=== PATIENT | female | born 1975 | race Caucasian/White ===

== ENCOUNTER 2016-10-11 20:23 | Emergency (ER) | payer OTHER ==
[~2016-10-11] VITALS: Ht 160 cm; Wt 63.0 kg
[2016-10-11 20:26] VITALS: TEMP 37; Ht 160 cm; Wt 63.0 kg
[2016-10-11] MEDS ORDERED: HYDROCODONE/ACETAMOPHEN 5/325MG TAB PO STA ×2 (20:48→22:22)
[2016-10-11] MEDS ORDERED: ALPR-411 PO (21:01)
[2016-10-11] MEDS ORDERED: RTL20 PO (21:01)
[2016-10-11] MEDS ORDERED: VENL150C56 PO (21:01)
[2016-10-11] MEDS ORDERED: DLN/100 PO (21:01)
--- NOTE | 2016-10-11 21:13 | DIAGNOSTIC IMAGING REPORT ---
CT HEAD WITHOUT CONTRAST (CT) CLINICAL HISTORY: Headache and visual changes status post head trauma COMPARISON STUDY: No previous studies for comparison. TECHNIQUE: Axial CT of the brain is performed from the vertex to the skull base. IV contrast was not administered for this examination. CT DOSE: 537.48 mGy.cm FINDINGS: No intra or extra-axial mass lesions are visualized. There is no CT evidence of acute cortical infarction. There is no evidence of midline shift. There is no acute hemorrhage. No calvarial fractures are visualized. There is no evidence of pathologic ventricular dilatation. There is no evidence of acute sinusitis IMPRESSION: No acute intracranial findings Electronically signed by: Robert Elliott M.D. 10/11/2016 9:12 PM Dictated Date/Time: 10/11/2016 9:11 PM
--- NOTE | 2016-10-11 21:40 | DIAGNOSTIC IMAGING REPORT ---
RIGHT RIBS UNILATERAL WITH PA CHEST CLINICAL HISTORY: Right rib pain status post trauma COMPARISON STUDY: No previous studies for comparison. FINDINGS: The erect chest reveals no pneumothorax. There is no focal pulmonary consolidation. There is a nondisplaced fracture of the right posteriolateral ninth rib. IMPRESSION: Acute nondisplaced fracture the right posterolateral ninth rib. No evidence of pneumothorax. Electronically signed by: Robert Elliott M.D. 10/11/2016 9:38 PM Dictated Date/Time: 10/11/2016 9:36 PM
[2016-10-11] MEDS ORDERED: HYDR-5688 PO (22:14)
--- NOTE | 2016-10-11 22:16 | EMERGENCY ROOM VISIT NOTE ---
History First contact with patient: 20:31 Chief Complaint: RIB PAIN Stated Complaint: PAIN IN RIBS, HURT TO BREATH, COUGH, SNEEZE History of Present Illness The patient is a 41 year old female who presents to the Emergency Room with complaints of right rib and head injury. The patient states 2 days ago she thinks she had a seizure and then fell down the steps. She hit her right lower ribs and her head. She doesn't remember much after the fall since it was a seizure. She states that she had some visual changes after words which were typical for her post ictal phase. The patient is still complaining of pain in the right temporal region. She denies any loss of consciousness. The patient denies any abnormal visual changes. She denies any nausea or vomiting. The patient denies any neck pain. She also states that the patient lives increases in pain when she takes a deep breath coughs or sneezes. She denies any shortness of breath. Review of Systems 10 system review was performed and was negative unless stated otherwise history of present illness. Past Medical/Surgical History Asthma, seizure disorder, hysterectomy, kidney stones, Social History Smoking Status: Current Every Day Smoker Alcohol Use: none Drug Use: none Marital Status: single Housing Status: lives with significant other Occupation Status: unemployed Current/Historical Medications Scheduled Alprazolam (Xanax), 0.5 MG PO QID Methylphenidate (Ritalin), 20 MG PO TID Phenytoin Sodium (Dilantin), 200 MG PO BID Venlafaxine Hcl (Effexor Extended Rel), 150 MG PO DAILY Physical Exam Vital Signs Date Time Temp Pulse Resp B/P Pulse Ox O2 Delivery O2 Flow Rate FiO2 10/11/16 20:26 37.0 92 16 116/65 98 Room Air Physical Exam GENERAL: 41-year-old white female appears in no acute distress. MENTAL Status: Alert and oriented 3. HEAD: Atraumatic, the patient is tender to palpation over the right temporal region without any palpable lumps. EYES: PERRLA. EOMs intact. EARS: Canals clear. TMs without hemotympanum NECK: Supple, no lymphadenopathy noted. No carotid bruits noted. LUNGS: Clear auscultation without wheezes rales or rhonchi. CARDIAC: Regular rate and rhythm without murmur. Pulses is full and equal throughout. CHEST WALL: Patient is tenderness to palpation over the right lateral lower chest wall. Remainder of chest wall is nontender. NEURO:Cranial nerves two through 12 intact. Cerebellar function intact with [id number]. Fine motor intact with alternating finger motions. Medical Decision & Procedures ER Provider Diagnostic Interpretation: RIGHT RIBS UNILATERAL WITH PA CHEST CLINICAL HISTORY: Right rib pain status post trauma COMPARISON STUDY: No previous studies for comparison. FINDINGS: The erect chest reveals no pneumothorax. There is no focal pulmonary consolidation. There is a nondisplaced fracture of the right posteriolateral ninth rib. IMPRESSION: Acute nondisplaced fracture the right posterolateral ninth rib. No evidence of pneumothorax. CT HEAD WITHOUT CONTRAST (CT) CLINICAL HISTORY: Headache and visual changes status post head trauma COMPARISON STUDY: No previous studies for comparison. TECHNIQUE: Axial CT of the brain is performed from the vertex to the skull base. IV contrast was not administered for this examination. CT DOSE: 537.48 mGy.cm FINDINGS: No intra or extra-axial mass lesions are visualized. There is no CT evidence of acute cortical infarction. There is no evidence of midline shift. There is no acute hemorrhage. No calvarial fractures are visualized. There is no evidence of pathologic ventricular dilatation. There is no evidence of acute sinusitis IMPRESSION: No acute intracranial findings Electronically signed by: Robert Elliott M.D. 10/11/2016 9:12 PM Dictated Date/Time: 10/11/2016 9:11 PM Electronically signed by: Robert Elliott M.D. 10/11/2016 9:38 PM ED Course The patient was evaluated. The patient was given Jasper 5/325 mg one tablet by mouth for pain. X-ray of the right ribs was ordered and interpreted by the radiologist and myself as above with findings of a ninth rib fracture. CT of the head was ordered and interpreted by the radiologist as above without any acute findings. The patient was reevaluated was feeling better. She was informed of the x-ray and CT findings. The patient was discharged home in stable condition. Medical Decision Differential includes: Acute intracranial bleed, trauma, meningitis, encephalitis, increased intracranial pressure, mass or mass effect, facial or dental infection, temporal arteritis, CVA, TIA, acute hypertensive emergency, sinusitis, carbon monoxide exposure. Route differential include contusion versus fracture, pneumothorax Impression Primary Impression: Right rib fracture Additional Impression: Head contusion Departure Information Dispostion Home / Self-Care Condition GOOD Prescriptions Hydrocodone/Acetaminophen 5MG/325MG (Jasper 5MG/325MG) Tab 1-2 TABLET PO Q6 Y for Pain, #20 TAB For Initial Treatment Prov: Brooke Alves PA-C 10/11/16 Referrals No Doctor, Assigned (PCP) Forms HOME CARE DOCUMENTATION FORM, IMPORTANT VISIT INFORMATION, WORK / SCHOOL INSTRUCTIONS Patient Instructions ED Head Injury Closed, [facility] Additional Instructions Take Tylenol every 6 hours as needed for pain. Take Jasper as needed for more severe pain. Do not take Tylenol while taking the Jasper. Avoid any heavy lifting for 4 weeks. Read head injury handout instructions. Any problems return to ER. Follow-up with your family doctor next week for recheck. Problem Qualifiers Primary Impression: Right rib fracture Encounter type: initial encounter Rib fracture type: single rib Fracture type: closed Qualified Codes: S22.31XA - Fracture of one rib, right side, initial encounter for closed fracture Additional Impression: Head contusion Encounter type: initial encounter Contusion of head detail: scalp Qualified Codes: S00.03XA - Contusion of scalp, initial encounter
[2016-10-11 22:28] VITALS: BP 113/82; PULSE 87; O2SAT 96
== END 2016-10-11 22:31 | disposition home or self-care (01) ==
LOC: C.EDB 20:24 → C.EDD 22:31
DX: S22.31XA Fracture of one rib, right side, initial encounter for closed fracture (principal); S00.03XA Contusion of scalp, initial encounter; J45.909 Unspecified asthma, uncomplicated; G40.909 Epilepsy, unspecified, not intractable, without status epilepticus; F17.200 Nicotine dependence, unspecified, uncomplicated; W10.9XXA Fall (on) (from) unspecified stairs and steps, initial encounter; Y93.89 Activity, other specified; Y92.89 Other specified places as the place of occurrence of the external cause; Y99.8 Other external cause status

== ENCOUNTER 2018-10-23 11:45 | Inpatient (IN) ==
[2018-10-23 12:55] LABS: Basophils # (auto) 0.02 K/uL (0-0.2); Basophils % (auto) 0.3 %; Eosinophils # (auto) 0.08 K/uL (0-0.5); Eosinophils % (auto) 1.4 %; Hemoglobin 13.9 g/dL (12.0-16.0); Immature Granulocytes # (auto) 0.01 K/uL (0.00-0.02); Immature Granulocytes % (auto) 0.2 %; Lymphocytes # (auto) 1.78 K/uL (1.2-3.4); Lymphocytes % (auto) 30.1 %; Mean Corpuscular Hgb Conc 33.9 g/dL (32-36); Mean Corpuscular Volume 92.6 fL (80-100); Mean Platelet Volume 9.7 fL (7.4-10.4); Monocytes # (auto) 0.54 K/uL (0.11-0.59); Monocytes % (auto) 9.1 %; Neutrophils # (auto) 3.48 K/uL (1.4-6.5); Neutrophils % (auto) 58.9 %; Platelet Count 300 K/uL (130-400); RDW Coefficient of Variation 13.7 % (11.5-14.5); RDW Standard Deviation 46.4 fL (36.4-46.3); Red Blood Count 4.43 M/uL (4.2-5.4); White Blood Count 5.91 K/uL (4.8-10.8)
--- NOTE | 2018-10-23 13:16 | CT Scan Report ---
CT head/brain wo con CLINICAL HISTORY: 43 years-old Female with cunningham, blurry vision. Acute headache with blurry vision TECHNIQUE: Multiple axial CT images of the head were obtained without contrast. A dose lowering tech nique was utilized adhering to the principles of ALARA. CT DOSE: 638.56 mGycm COMPARISON: CT head 10/11/2016. FINDINGS: No acute intracranial hemorrhage, midline shift, intracranial mass, hydrocephalus, territorial ischem ia or abnormal extra-axial collection. The calvarium is intact. Minimal mucosal thickening about the bilateral maxillary sinuses. Mastoid a ir cells and middle ear cavities are generally clear. The soft tissues and orbits appear unremarkable . IMPRESSION: No acute intracranial abnormality. The above report was generated using voice recognition software. It may contain grammatical, syntax o r spelling errors. Electronically signed by: Bud Bowman M.D. 10/23/2018 1:15 PM
[2018-10-23 13:18] LABS: Alanine Aminotransferase 50 U/L (12-78); Albumin Level 4.2 gm/dl (3.4-5.0); Aspartate Aminotransferase 21 U/L (15-37); BUN Creatinine Ratio 13.8 (10-20); Blood Urea Nitrogen 8 mg/dl (7-18); Calcium 8.8 mg/dl (8.5-10.1); Carbon Dioxide 27 mmol/L (21-32); Chloride 106 mmol/L (98-107); Est GFR (Non-African American) 111.3; Glucose 95 mg/dl (70-99); Potassium 3.8 mmol/L (3.5-5.1); Sodium 138 mmol/L (136-145)
[2018-10-23 13:20] LABS: Albumin Globulin Ratio 1.1 (0.9-2); Alkaline Phosphatase 83 U/L (45-117); Bilirubin,Total 0.3 mg/dl (0.2-1); Globulin 3.8 gm/dl (2.5-4.0)
--- NOTE | 2018-10-23 16:57 | History & Physical Report ---
Date of Service October 23, 2018 Assessment & Plan (1) Altered mental status: (2) Dilantin toxicity: This is a 43-year-old female with significant past medical history of seizure disorder, depression, anxiety, PTSD, ADD who presents from outside correctional facility secondary to altered mental status, blurred vision and headache times 3 hours. During ED evaluation phenytoin level toxic at 36. Other lab work and workup essentially unremarkable including infectious and metabolic. CT head without acute abnormality. Symptoms have since resolved but still with residual headache. Visual Acuity 20/25 R and 20/40 L Ddx: phenytoin toxicity, transient global amnesia, substance abuse, psychiatric , migraine, -Admit to Med/Surg telemetry secondary to phenytoin toxicity -Hold phenytoin and check levels daily -Check Urine drug screen, vit b12, TSH -Consult neurology -Repeat CBC, BMP in a.m. (3) Seizure disorder: -neurologist unknown, dx with seizure disorder since 2007 -reports 6-7 seizure past year, most recently 1 week ago -hold phenytoin in setting of toxicity -consult neurology (4) Depression: -continue effexor (5) PTSD (post-traumatic stress disorder): -continue prazosin (6) DVT prophylaxis: -SCDS Disposition: [facility] Follow up: Staff physician on site at correctional facility Patient was seen an examined with Dr. Shrestha, please see addenum Starting 10/24/18 patient will be followed by Dr. Feng History of Present Illness Primary Care Provider: NO PCP This is a 43-year-old female with significant past medical history of seizure disorder, depression, anxiety, PTSD, ADD who presents from outside correctional facility secondary to altered mental status, blurred vision and headache times 3 hours. Guards are present at bedside. Symptoms started approximately at 10: 30 AM when patient was unaware of surroundings, where she was, "acting out of it." Patient also elicits headache that starts at the base of head and radiates to right temporal region, constant, waxes and wanes in severity, currently 3/10. She also elicits to diplopia and blurred vision which are not exactly new. She states this has been ongoing for about 1 week, "for example when I read a book I have to hold out very far or it is blurry." Patient's last known seizure was approximately 1 week ago. She states she gets convulsive seizures as well as "staring episodes." Approximately 1 week ago she developed similar symptoms with headache that radiated to right temporal region, "kaleidoscope-like vision," that then went into convulsions and loss of bowel and bladder control. Down for unknown duration but states that "I came to fairly quickly." This past year she has had approximately 6-7 known seizures. She has been compliant with her Dilantin. Denies fever, chills, sweats, dizziness, chest pain, shortness of breath, hemoptysis, palpitations, nausea, vomiting, diarrhea, abdominal pain. She does state increased urinary frequency after recently starting prazosin, but this helps with her night terrors. Also associates lightheadedness upon standing that resolves after a few seconds. No recent illness, but complains of sinus congestion. She has normal appetite. States last drug use was August,. History of migraines but this feels nothing similar. Allergies Allergy/AdvReac Type Severity Reaction Status Date / Time No Known Allergies Allergy Unverified 10/23/18 12:20 Home Medications Home Medications Medication Instructions Recorded Confirmed Type phenytoin sodium extended 300 mg PO BID 10/23/18 10/23/18 History prazosin 1 mg PO HS 10/23/18 10/23/18 History venlafaxine 37.5 mg PO DAILY 10/23/18 10/23/18 History Past Med/Surg History Medical History Seizure disorder Anxiety PTSD (post-traumatic stress disorder) Depression (Chronic) OCD (obsessive compulsive disorder) (Chronic) Surgical History History of partial hysterectomy History of nasal surgery Family History Mother Depression Anxiety Father Arthralgia Family/Other Seizures Other Cancer Social History Current Living Situation: Other Current Living Situation Comment: [facility] Feels Safe at Home: Yes Safety Concerns: Feels Safe At This Time Smoking Status: Current every day smoker Tobacco Type: cigarettes Cigarettes per Day: 20 Do You Dip or Chew Tobacco: No Second Hand Exposure: Yes Hx Alcohol Use: No Hx Substance Use: Yes substance use type: marijuana Last Used Substance: Days ( ago) Last Used Substance Other:: August 2018 Beliefs That Will Affect Care: None Preferred Language: Italian Communication Ability: Effective Jalousie Installer Required: No Review of Systems All systems reviewed & are unremarkable except as noted in HPI & below Physical Exam 2 Vital Signs (Past 24 Hours): Last Vital Signs Temp 37.0 C 10/23/18 11:50 Pulse 76 10/23/18 15:30 Resp 18 10/23/18 15:30 BP 145/76 H 10/23/18 15:30 Pulse Ox 98 10/23/18 15:30 Physical Exam: Gen: WD/WN, F, NAD, sitting up in bed, pleasant, conversing easily Head: Normocephalic, Atraumatic Eyes: Sclera normal, no conjunctival injection, PERRLA, EOMI, no nystagmus, fundus exam normal ENT: Gross hearing intact, normal pharynx, mucous membranes moist Neck: supple, no adenopathy, No JVD, no bruit, Resp: Clear to auscultation b/l, no wheeze, rales, rhonchi. Normal insp/exp effort, no accessory muscle use CV: Regular rate, regular rhythm, no murmur, rub, gallop, or ectopy Abd: +BS x 4, soft, nontender, nondistended Musculoskeletal: moves extremities active rom x 4, strength intact, good mirror maker strength Extremities: No edema bilaterally Skin: warm, moist, no rash, negative turgor, cap refill < 2sec Neuro: Alert and oriented x 3, speech normal, good mood/affect, cran nerve 2-12 intact grossly : deferred Results & Data Laboratory Results Short CBC 10/23/18 Range/Units 11:35 WBC 5.91 (4.8-10.8) K/uL Hgb 13.9 (12.0-16.0) g/dL Hct 41.0 (37-47) % Plt Count 300 (130-400) K/uL BMP 10/23/18 11:35 Sodium 138 Potassium 3.8 Chloride 106 Carbon Dioxide 27 BUN 8 Creatinine 0.58 L Glucose 95 Calcium 8.8 Liver Function 10/23/18 Range/Units 11:35 Total Bilirubin 0.3 (0.2-1) mg/dl AST 21 (15-37) U/L ALT 50 (12-78) U/L Alkaline Phosphatase 83 (45-117) U/L Albumin 4.2 (3.4-5.0) gm/dl Diagnostic Findings CT Brain: FINDINGS: No acute intracranial hemorrhage, midline shift, intracranial mass, hydrocephalus, territorial ischemia or abnormal extra-axial collection. The calvarium is intact. Minimal mucosal thickening about the bilateral maxillary sinuses. Mastoid air cells and middle ear cavities are generally clear. The soft tissues and orbits appear unremarkable. IMPRESSION: No acute intracranial abnormality. ECG Rate (beats per minute): 74 Rhythm: normal sinus Code Status & VTE Plan Code Status Full Code VTE Prophylaxis Plan VTE Prophylaxis will be ordered: Yes Supervising Physician Co-Signing Physician Notes HISTORY: Record reviewed. Patient interviewed and examined. Care coordinated with Miranda Wild PA-C. Please refer to her documentation for patient's history. Briefly, 43 YO female with seizure disorder treated with phenytoin. Noted to be confused this morning. Experiencing diplopia. Feels better this afternoon. EXAM: General- no distress Eyes- + nystagmus Lungs- clear to auscultation; no respiratory distress Cardiovascular- RRR; no murmur; no gallop; no JVD; no pretibial edema Abdomen- + bowel sounds, soft, nontender Extremities- no cyanosis; no calf tenderness Neuro- alert, oriented; PERRL; + nystagmus; tremor of hands Skin- warm & dry DATA: Pheynytoin level 36 Other lab studies as noted. CT head negative. ASSESSMENT AND PLAN: Phenytoin toxicity. Hold phenytoin; recheck level in a.m. Consider alternative therapies. Consult Neuro. Please refer to VITALIY Wild's documentation for discussion of other issues. _ (1) Dilantin toxicity Encounter type: initial encounter Injury intent: accidental or unintentional Qualified Code(s): T42.0X1A - Poisoning by hydantoin derivatives, accidental ( unintentional), initial encounter (2) Depression Depression Type: unspecified Qualified Code(s): F32.9 - Major depressive disorder, single episode, unspecified (3) Altered mental status Altered mental status type: unspecified Coma depth: Coma timing: Qualified Code(s): R41.82 - Altered mental status, unspecified
[2018-10-23] MEDS ORDERED: ALUMINUM/MAGNESIUM SUSP 30 ML UDC PO PRN (19:10)
[2018-10-23] MEDS ORDERED: MAGNESIUM HYDROXIDE SUSP 30 ML UDC PO PRN (19:10)
[2018-10-23] MEDS ORDERED: ONDANSETRON INJ 2 MG/ML 2 ML VIAL IV PRN (19:10)
[2018-10-23] MEDS ORDERED: POLYETHYLENE (MIRALAX) 17 GM PACK PO PRN (19:10)
[2018-10-23 19:14] LABS: Amphetamines+Metham, Urine Neg (Neg); Barbiturates, Urine Neg (Neg); Benzodiazepine, Urine Neg (Neg); Cocaine, Urine Neg (Neg); MDMA (Ecstacy), Urine Neg (Neg); Methadone, Urine Neg (Neg); Opiate, Urine Neg (Neg); Phencyclidine, Urine Neg (Neg)
--- NOTE | 2018-10-23 19:17 | Emergency Department Note ---
Entered by Scott Sampson acting as a scribe for Gerson Johnston MD History of Present Illness General Chief complaint: Confusion Stated complaint: DECREASED CONSCIOUSNESS, SEIZURE Time Seen by Provider: 10/23/18 12:36 Source: patient History of Present Illness Onset (ago): hour(s) 2 Location: head Pain Consistency: + other (currently improving) Quality: + other (headache) Associated symptoms: + other (double vision that is not changed with covering one eye; denies speech problems, difficulty swallowing, fevers) The patient is a 43 year old female with a history of seizures, OCD, and depression who presents to the Emergency Room with complaints of a currently improving headache beginning around 10:30 this morning, about two hours ago. The patient reports that for the past couple days she has also been experiencing double vision even with one of her eyes closed. She reports that she recently started a new medication but is unsure of the name. She also states that she has been taking Dilantin for a long time, but her levels have not recently been checked. She denies speech problems, difficulty swallowing, fevers, recent trauma, self-harm, or falling, although she states that she had a seizure 1-2 weeks ago. She denies other medical problems. She states that she has not taken aspirin or Tylenol but has taken her regular medications. She notes that she has been in senior living since August 2018, and she has not been smoking marijuana or drinking alcohol since incarceration. Jail staff report that the patient was somewhat confused today. Home Medications Home Medications Medication Instructions Recorded Confirmed Type phenytoin sodium extended 300 mg PO BID 10/23/18 10/23/18 History prazosin 1 mg PO HS 10/23/18 10/23/18 History venlafaxine 37.5 mg PO DAILY 10/23/18 10/23/18 History Allergies Allergy/AdvReac Type Severity Reaction Status Date / Time No Known Allergies Allergy Unverified 10/23/18 12:20 Past Med/Surg History Medical History Seizure disorder Anxiety PTSD (post-traumatic stress disorder) Depression (Chronic) OCD (obsessive compulsive disorder) (Chronic) Surgical History History of partial hysterectomy History of nasal surgery Family History Mother Depression Anxiety Father Arthralgia Family/Other Seizures Other Cancer Social History Current Living Situation Comment: [facility] Feels Safe at Home: Yes Smoking Status: Former smoker Years Smoked: 17 Cigarettes per Day: 1ppd Hx Alcohol Use: Yes Alcohol Intake Frequency: a few times a month Alcohol Intake Frequency Comment: 6 pack a month Hx Substance Use: Yes substance use type: marijuana Last Used Substance Other: : August 2018 Preferred Language: Gambian Review of Systems See HPI for pertinent positives & negatives. and A total of 10 systems reviewed and were otherwise negative Physical Exam Vital Signs Vital Signs - 24 hr 10/23/18 11:50 10/23/18 13:02 10/23/18 13:12 Temperature 37.0 C Temperature Source Oral Sepsis Recent Fever Within 48 Hours No Sepsis New/Unexplained Change in Mental Status No Sepsis Action Taken by Nursing No Action Required Pulse Rate 86 Pulse Rate [Left Finger] 75 Respiratory Rate 17 18 Respiratory Effort / Characteristics Non-Labored Spontaneous Respiratory Depth Normal Respiratory Pattern Regular Blood Pressure 133/97 Blood Pressure [Left Arm] 119/81 Blood Pressure Mean 109 Blood Pressure Mean [Left Arm] 93 Blood Pressure Position Sitting Blood Pressure Position [Left Arm] Lying Pulse Oximetry 99 97 98 Oxygen Delivery Method Room Air Room Air Room Air 10/23/18 15:30 10/23/18 17:41 10/23/18 19:07 Temperature 36.9 C Temperature Source Oral Sepsis Recent Fever Within 48 Hours Sepsis New/Unexplained Change in Mental Status Sepsis Action Taken by Nursing Pulse Rate Pulse Rate [Left Finger] 76 75 69 Respiratory Rate 18 18 22 Respiratory Effort / Characteristics Respiratory Depth Respiratory Pattern Blood Pressure Blood Pressure [Left Arm] 145/76 H 145/76 H 143/86 H Blood Pressure Mean Blood Pressure Mean [Left Arm] 99 99 105 Blood Pressure Position Blood Pressure Position [Left Arm] Pulse Oximetry 98 98 98 Oxygen Delivery Method General: Non-ill appearing middle age female in no acute distress. HEENT: Normal cephalic atraumatic. Pupils are equal round and reactive to light. Extraocular movements are intact. Oropharynx is pink with moist mucous membranes. No swelling of the mouth lips or tongue. Neck: Supple with a midline trachea. No meningeal signs or stiffness, no JVD or bruits. No Stridor. Chest: Clear to auscultation bilaterally. No wheezes or rhonchi. No increased work of breathing. Heart: regular rate and rhythm. Abdomen: Soft nontender, nondistended without rebound guarding or rigidity. Extremities: No cyanosis clubbing or edema. No calf tenderness or assymetry Spine/Back. Non tender to palpation. No CVA tenderness Skin: Good turgor without rashes. Neurologic exam: Cranial nerves two through 12 are intact. Motor and sensation are intact and symmetrical throughout. No nystagmus. No tremor. No pronator drift. Course 1238: Past medical records reviewed. The patient was evaluated in room B5, and a complete history and physical examination were performed. 1436: The patient is resting comfortably. Her vision is 20/25 and 20/40. 1605: I updated the patient on current results. 1618: I consulted [facility]. She will reevaluate the patient for hospitalization. Consultations Consultation #1: I consulted [facility]. She will reevaluate the patient for hospitalization. Time: 16:18 Medical Decision Making Differential Diagnosis Differential diagnosis: seizure, headache, toxicologic, cardiac, electrolyte or metabolic abnormalities Medical Records Attestation: I reviewed the patient's medical records. Home Medications Current Medication List: was personally reviewed by me Laboratory Data Attestation: I reviewed the patient's lab results. Result diagrams: 10/23/18 11:35 10/23/18 11:35 Lab Results 10/23/18 10/23/18 10/23/18 Range/Units 11:35 11:35 15:01 WBC 5.91 (4.8-10.8) K/uL RBC 4.43 (4.2-5.4) M/uL Hgb 13.9 (12.0-16.0) g/dL Hct 41.0 (37-47) % MCV 92.6 (80-100) fL MCH 31.4 (25-34) pg MCHC 33.9 (32-36) g/dL RDW Std Deviation 46.4 H (36.4-46.3) fL RDW Coeff of Oscar 13.7 (11.5-14.5) % Plt Count 300 (130-400) K/uL MPV 9.7 (7.4-10.4) fL Immature Gran % (Auto) 0.2 % Neut % (Auto) 58.9 % Lymph % (Auto) 30.1 % Chaffee % (Auto) 9.1 % Eos % (Auto) 1.4 % Baso % (Auto) 0.3 % Immature Gran # (Auto) 0.01 (0.00-0.02) K/uL Neut # (Auto) 3.48 (1.4-6.5) K/uL Lymph # (Auto) 1.78 (1.2-3.4) K/uL [place]affee # (Auto) 0.54 (0.11-0.59) K/uL Eos # (Auto) 0.08 (0-0.5) K/uL Baso # (Auto) 0.02 (0-0.2) K/uL Sodium 138 (136-145) mmol/L Potassium 3.8 (3.5-5.1) mmol/L Chloride 106 (98-107) mmol/L Carbon Dioxide 27 (21-32) mmol/L Anion Gap 5.0 (3-11) BUN 8 (7-18) mg/dl Creatinine 0.58 L (0.6-1.2) mg/dl Est Cr Clr Drug Dosing Not Reportable Est GFR ( Amer) 129.0 Est GFR (Non-Af Amer) 111.3 BUN/Creatinine Ratio 13.8 (10-20) Glucose 95 (70-99) mg/dl Calcium 8.8 (8.5-10.1) mg/dl Total Bilirubin 0.3 (0.2-1) mg/dl AST 21 (15-37) U/L ALT 50 (12-78) U/L Alkaline Phosphatase 83 (45-117) U/L Total Protein 8.0 (6.4-8.2) gm/dl Albumin 4.2 (3.4-5.0) gm/dl Globulin 3.8 (2.5-4.0) gm/dl Albumin/Globulin Ratio 1.1 (0.9-2) Lipase 86 (73-393) U/L Urine Opiates Screen (Neg) Ur Methadone, Qual (Neg) Urine Barbiturates (Neg) Phenytoin 36.0 H* (10-20) mcg/ml Ur Phencyclidine (PCP) (Neg) U Amphetamin/Meth Scrn (Neg) MDMA (Ecstasy) Screen (Neg) U Benzodiazepines Scrn (Neg) Ur Cocaine Metabolite (Neg) U Marijuana (THC) Screen (Neg) 10/23/18 Range/Units 18:42 WBC (4.8-10.8) K/uL RBC (4.2-5.4) M/uL Hgb (12.0-16.0) g/dL Hct (37-47) % MCV (80-100) fL MCH (25-34) pg MCHC (32-36) g/dL RDW Std Deviation (36.4-46.3) fL RDW Coeff of Oscar (11.5-14.5) % Plt Count (130-400) K/uL MPV (7.4-10.4) fL Immature Gran % (Auto) % Neut % (Auto) % Lymph % (Auto) % Chaffee % (Auto) % Eos % (Auto) % Baso % (Auto) % Immature Gran # (Auto) (0.00-0.02) K/uL Neut # (Auto) (1.4-6.5) K/uL Lymph # (Auto) (1.2-3.4) K/uL [place]affee # (Auto) (0.11-0.59) K/uL Eos # (Auto) (0-0.5) K/uL Baso # (Auto) (0-0.2) K/uL Sodium (136-145) mmol/L Potassium (3.5-5.1) mmol/L Chloride (98-107) mmol/L Carbon Dioxide (21-32) mmol/L Anion Gap (3-11) BUN (7-18) mg/dl Creatinine (0.6-1.2) mg/dl Est Cr Clr Drug Dosing Est GFR ( Amer) Est GFR (Non-Af Amer) BUN/Creatinine Ratio (10-20) Glucose (70-99) mg/dl Calcium (8.5-10.1) mg/dl Total Bilirubin (0.2-1) mg/dl AST (15-37) U/L ALT (12-78) U/L Alkaline Phosphatase (45-117) U/L Total Protein (6.4-8.2) gm/dl Albumin (3.4-5.0) gm/dl Globulin (2.5-4.0) gm/dl Albumin/Globulin Ratio (0.9-2) Lipase (73-393) U/L Urine Opiates Screen Neg (Neg) Ur Methadone, Qual Neg (Neg) Urine Barbiturates Neg (Neg) Phenytoin (10-20) mcg/ml Ur Phencyclidine (PCP) Neg (Neg) U Amphetamin/Meth Scrn Neg (Neg) MDMA (Ecstasy) Screen Neg (Neg) U Benzodiazepines Scrn Neg (Neg) Ur Cocaine Metabolite Neg (Neg) U Marijuana (THC) Screen Neg (Neg) Imaging Data Radiologist's Impression: Radiology results as stated below per my review and the radiologist's interpretation: CT head/brain wo con CLINICAL HISTORY: 43 years-old Female with cunningham, blurry vision. Acute headache with blurry vision TECHNIQUE: Multiple axial CT images of the head were obtained without contrast. A dose lowering technique was utilized adhering to the principles of ALARA. CT DOSE: 638.56 mGycm COMPARISON: CT head 10/11/2016. FINDINGS: No acute intracranial hemorrhage, midline shift, intracranial mass, hydrocephalus, territorial ischemia or abnormal extra-axial collection. The calvarium is intact. Minimal mucosal thickening about the bilateral maxillary sinuses. Mastoid air cells and middle ear cavities are generally clear. The soft tissues and orbits appear unremarkable. IMPRESSION: No acute intracranial abnormality. The above report was generated using voice recognition software. It may contain grammatical, syntax or spelling errors. Electronically signed by: Bud Bowman M.D. 10/23/2018 1:15 PM ECG Data Attestation: I personally reviewed and interpreted this ECG as follows: Indication: other (double vision) Rate (beats per minute): 74 Rhythm: normal sinus Findings: no PAC, no PVC, no ST depression and no ST elevation Comparison ECG Date: no prior available Blood Pressure Blood Pressure Findings: Elevated blood pressure Blood Pressure Disposition: further management by hospitalist RIO Narrative This patient comes in as described above. She was placed in room B5. She was brought in from the [facility] after she had an episode where she was confused and altered. She says her vision has been blurry. Some of that has been off and on. She is on Dilantin and there was no reported seizure activity. Her Dilantin level was increased a couple weeks ago after it was low at 7 at the time she was on 200 twice daily was increased to 300 twice daily. She has had a headache as well. There has been no fall or trauma. she denies any drug ingestion. She has no focal numbness or weakness. She seems to be doing better than she was. She has no meningeal signs or stiffness she has had no fever. IV access established and blood work was obtained. CAT scan of head was unremarkable. EKG does not suggest acute coronary syndrome or arrhythmia. She has no significant electrolyte or metabolic abnormalities. Her Dilantin level was significantly elevated at 36 and this may be causing some of her symptoms. I do think she needs to be admitted/observed with her Dilantin level held until she is safe to go back to [facility]. she is certainly can be a fall risk with this as well. They also may want to consider other medications instead of Dilantin. I have consulted the hospitalist to see her in the ER for these measures. Impression & Plan Altered mental status, Dilantin toxicity, Seizure disorder, Blurred vision, bilateral Discharge Plan Visit Data Chief Complaint: Confusion Stated Complaint: DECREASED CONSCIOUSNESS, SEIZURE Other Complaint: Seizure ED Provider: Gerson Johnston Discharge Problem: Altered mental status, Dilantin toxicity, Seizure disorder, Blurred vision, bilateral Patient Disposition: Being Evaluated by Hospitalist Discharge Instructions Interventions: ED Discharge Assessment Last Done: 10/23/18 18:35 The scribe's documentation has been prepared under my direction and personally reviewed by me in its entirety. I confirm that the note above accurately reflects all work, treatment, procedures, and medical decision making performed by me.
[2018-10-24] MEDS: PRAZOSIN HCL 1 MG CAP PO SCH ×2 (00:42→21:11)
[2018-10-24] MEDS ORDERED: INFLUENZA ADMINISTRATION CHARGE ONE (07:30)
[2018-10-24] MEDS ORDERED: INFLUENZA VIRUS QUAD VACCINE 0.5 ML SYR IM ONE (07:30)
[2018-10-24 07:33] LABS: Hematocrit (blood only) 37.9 % (37-47); Hemoglobin 12.6 g/dL (12.0-16.0); Mean Corpuscular Hgb Conc 33.2 g/dL (32-36); Mean Corpuscular Volume 93.1 fL (80-100); Mean Platelet Volume 9.4 fL (7.4-10.4); Platelet Count 259 K/uL (130-400); RDW Coefficient of Variation 13.5 % (11.5-14.5); RDW Standard Deviation 46.1 fL (36.4-46.3); Red Blood Count 4.07 M/uL (4.2-5.4); White Blood Count 5.47 K/uL (4.8-10.8)
[2018-10-24] MEDS: ACETAMINOPHEN 325 MG TAB PO PRN ×2 (07:53→13:32)
[2018-10-24] MEDS: VENLAFAXINE HCL 37.5 MG TAB PO SCH (07:54)
[2018-10-24 08:02] LABS: BUN Creatinine Ratio 16.4 (10-20); Calcium 8.3 mg/dl (8.5-10.1); Creatinine Clr Calc Pharmacy 107.2 ml/min; Est GFR (Non-African American) 111.3; Potassium 3.8 mmol/L (3.5-5.1)
--- NOTE | 2018-10-24 13:49 | Neurology Consultation ---
Date of Consultation October 24, 2018 Assessment & Plan (1) Seizure disorder: 1. hold dilantin until level is decreased to 25 then restart dilantin 200 mg am 300 mg pm 2. Keppra may be a more appropriate medication for her- states she was on keppra in past but was too expensive she now has insurance so it may be a viable option 3. 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 MRI- in past she doesn't know what neurologist she saw just that he was in the [place] area- he had imaging done at [facility] in past 5. seizure precautions 6. if unable to obtain imaging -MRI brain with/without and possible c spine for any abnormalities or misalignment. 7. changing her to Keppra would start at 500 mg BID and increase to 1000 mg BID after 2 weeks, obtain a level and then decrease dilantin by 50 mg every 5 days until off. follow up with neurologist in [place] area or we would be glad to see her back in our office after she is out of fpc. Pt seen and examined. Exam notable for horizontal nystagmus on extremes of gaze. Imp hx sz, dilantin toxicity with incomplete control. Add keppra as above , discussed mood related se re Keppra with pt. JEFFREY Menendez MD Supervising Physician Co-Signing Physician Notes I have seen and discussed above patient with Dr Molly Menendez, neurology History of Present Illness Reason for Consultation: seizure disorder Requesting Physician: Lobo Feng MD Attending Physician: Lobo Feng MD History of Present Illness Monae is a 43 year old female with PMH- seizure disorder, depression, anxiety , PTSD, ADD who presents from outside correctional facility secondary to altered mental status, blurred vision and headache times 3 hours. Guards are present at bedside. she was unaware of surroundings, where she was, "acting out of it." She is complaining of a headache that starts at the base of head and radiates to right temporal region which is off and on and has had similar symptoms in the past. She also states she has double vision off and on which does not go away with covering one eye. Her last seizure was about 1 week ago. she states she has a history of tonic clonic seizures along which staring spells. Last week she had the headache with "kaleidoscope-like vision," that then went into convulsions and loss of bowel and bladder control but she was alone and down for an unknown time period but recovered quickly according to her report. year she has had approximately 6-7 known seizures. She has been compliant with her Dilantin and recently it was changed from 200 mg BID to 300 mg BID by the [facility] after checking her level and it was too low. tobaccco abuse -ppd smoker, no EtOH use, marijuana use last August, no other drugs. denies CP, SOB, abdominal pain, weakness, numbness tingling, N, V, current headache or double vision. Allergies Allergy/AdvReac Type Severity Reaction Status Date / Time No Known Allergies Allergy Unverified 10/23/18 12:20 Home Medications Home Medications Medication Instructions Recorded Confirmed Type phenytoin sodium extended 300 mg PO BID 10/23/18 10/23/18 History prazosin 1 mg PO HS 10/23/18 10/23/18 History venlafaxine 37.5 mg PO DAILY 10/23/18 10/23/18 History Patient History Medical History Seizure disorder Anxiety PTSD (post-traumatic stress disorder) Depression (Chronic) OCD (obsessive compulsive disorder) (Chronic) Surgical History History of partial hysterectomy History of nasal surgery Family History Mother Depression Anxiety Father Arthralgia Family/Other Seizures Other Cancer Social History Current Living Situation: Other [facility] Feels Safe at Home: Yes Safety Concerns: Feels Safe At This Time Smoking Status: Current every day smoker Tobacco Type: cigarettes Cigarettes per Day: 20 Do You Dip or Chew Tobacco: No Second Hand Exposure: Yes Hx Alcohol Use: No Hx Substance Use: Yes substance use type: marijuana Last Used Substance: Days ( ago) Last Used Substance Other:: August 2018 Beliefs That Will Affect Care: None Preferred Language: Ecuadorean Communication Ability: Effective Adjuster Leader Required: No Physical Exam 2 Vital Signs (Past 24 Hours): Last Vital Signs Temp 36.9 C 10/24/18 11:55 Pulse 83 10/24/18 11:55 Resp 16 10/24/18 11:55 BP 116/80 10/24/18 11:55 Pulse Ox 96 10/24/18 11:55 Physical Exam: Constitutional: appearance nourished, healthy and normal, shackled to bed Ears, Nose, Mouth and Throat: mucous membranes moist, no injection and skin normal, eyes normal Cardiovascular: normal S-1 and S-2 and regular rate and rhythm Respiratory: clear to auscultation (CTA) and no rales, rhonchi or wheeze Musculoskeletal: no peripheral edema and good distal pulses Skin: no stigmata of neurocutaneous disease noted and normal and intact Eyes: extraocular muscles intact (EOMI) and pupils equal, round and reactive to light (PERRL), bilateral nystagmus NEUROLOGIC EXAMINATION: Mental status: Alert and interactive Oriented to full date and location Oriented to person Speech fluent with no evidence of aphasia Cranial Nerves smile eye brow raise symmetric Reflexes: Deep tendon reflexes were symmetrical and graded 2/5. Plantar responses were flexor. Sensory: intact to light and cool touch Coordination: finger to nose no bipass, reaching tremor bilaterally right > left Gait/Stance: Posture normal sitting up in bed Motor: Negative for pronator drift of out stretched arms with eyes closed. 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
--- NOTE | 2018-10-24 18:23 | Hospitalist Progress Note ---
Date of Service October 24, 2018 Assessment & Plan (1) Altered mental status: This is a 43-year-old female with significant past medical history of seizure disorder, depression, anxiety, PTSD, ADD who presents from outside correctional facility secondary to altered mental status, blurred vision and headache times 3 hours. During ED evaluation phenytoin level toxic at 36. Other lab work and workup essentially unremarkable. CT head without acute abnormality -has been at mental baseline since being in hospital -normal B12 and TSH levels. negative urine toxicology screen -management of dilantin toxicity and seizure disorder as below (2) Dilantin toxicity: Seizure disorder: neurology recommends dilantin to Keppra transition "hold dilantin until level is decreased to 25 then restart dilantin 200 mg am 300 mg pm changing her to Keppra would start at 500 mg BID and increase to 1000 mg BID obtain a level and then decrease dilantin by 50 mg every 5 days until off. " will trend dilantin levels daily (3) Seizure disorder: Seizure disorder: neurology recommends dilantin to Keppra transition "hold dilantin until level is decreased to 25 then restart dilantin 200 mg am 300 mg pm changing her to Keppra would start at 500 mg BID and increase to 1000 mg BID obtain a level and then decrease dilantin by 50 mg every 5 days until off. " MRI Brain and Cervical spine ordered (4) Depression: -continue effexor (5) PTSD (post-traumatic stress disorder): -continue prazosin (6) DVT prophylaxis: -SCDS Subjective Patient with normal affect and following commands. Is verbal. denies since being in the hospital of having confusion. denies acute headache. denies acute changes in vision since being in hospital moving extremities well. is handcuffed because she is from correctional facility denies vomiting discussed with patient plans for MRI imaging as per neurology. Physical Exam 2 Vital Signs (Past 24 Hours): Last Vital Signs Temp 37.0 C 10/24/18 15:42 Pulse 78 10/24/18 15:42 Resp 15 10/24/18 15:42 BP 109/75 10/24/18 15:42 Pulse Ox 97 10/24/18 15:42 Constitutional: WD/WN, vitals as above Eyes: PERRL, conjunctivae normal, anicteric sclerae ENMT: external ear and nose normal, oropharynx normal Neck: trachea midline, no thyromegaly Respiratory: normal respiratory effort, lungs clear to auscultation Cardiovascular: RRR, no murmur, no edema Gastrointestinal (Abdomen): normal bowel sounds, soft, nontender, no hepatosplenomegaly Neurologic: PERRL, EOMI, accommodation nl, no face palsy, no dysarthria CN' s II-XI intact bilaterally Psychiatric: A+Ox3, euthymic affect _ (1) Altered mental status Altered mental status type: unspecified Coma depth: Coma timing: Qualified Code(s): R41.82 - Altered mental status, unspecified (2) Dilantin toxicity Encounter type: initial encounter Injury intent: accidental or unintentional Qualified Code(s): T42.0X1A - Poisoning by hydantoin derivatives, accidental ( unintentional), initial encounter (3) Depression Depression Type: unspecified Major depression recurrence: Active/Remission status: Major depression episode severity: Psychotic features: Trimester: Qualified Code(s): F32.9 - Major depressive disorder, single episode, unspecified
[2018-10-24] MEDS: levETIRAcetam 500 MG TAB PO SCH (21:12)
[2018-10-24] MEDS ORDERED: GADOBUTROL 7.5ML VIAL IV PRN (22:06)
--- NOTE | 2018-10-24 22:09 | Magnetic Resonance Report ---
CERVICAL SPINE MRI HISTORY: Neck pain. previous altered mental status TECHNIQUE: Multiplanar multisequence MRI of the cervical spine was performed without the use of contr ast. COMPARISON STUDY: None. FINDINGS: Straightening of the cervical spine. Alignment is intact. No fracture or subluxation. Carolyn l marrow signal intensity seen throughout the visualized osseous structures. The visualized posterior fossa is unremarkable. The cervical spinal cord is normal in course, caliber, and signal intensity. Mild disc desiccation within the upper to mid cervical spine. No significant disc space narrowing. Pr evertebral soft tissues and the C1-C2 interval are intact. No disc herniations. C2-C3: No significant central canal or neural foraminal narrowing. C3-C4: No significant central canal or neural foraminal narrowing. C4-C5: No significant central canal or neural foraminal narrowing. C5-C6: Tiny broad-based posterior disc bulge without significant central canal or right-sided neural foraminal narrowing. There is mild left-sided neural foraminal narrowing due to the disc bulge and un covertebral hypertrophy. C6-C7: No significant central canal or neural foraminal narrowing. C7-T1: No significant central canal or neural foraminal narrowing. IMPRESSION: 1. Tiny broad-based posterior disc bulge at C5-C6 without significant central canal narrowing. There is mild left-sided neural foraminal narrowing at this level. 2. Straightening of the cervical spine. Electronically signed by: Neptali Garcia M.D. 10/24/2018 10:07 PM
--- NOTE | 2018-10-24 22:43 | Magnetic Resonance Report ---
Brain MRI WITH AND WITHOUT CONTRAST HISTORY: previous altered mental status TECHNIQUE: Multiplanar multisequence MRI of the brain was performed both before and after the intrave nous administration of contrast. COMPARISON STUDY: Head CT 10/23/2018. FINDINGS: Mild mucosal thickening within the right maxillary sinus. The mastoid air cells are clear. The ventricles are normal in size. No areas of restricted diffusion to suggest acute infarction. The midline structures are intact. The major vascular flow-voids at the skull base are well-maintained. T he temporal lobes are symmetric. No hematoma or midline shift. No abnormal enhancement. Best seen on axial image 10 and coronal thin sequence image 27 there is 6 x 5 mm subependymal nodule near the left temporal horn. This matches stewart matter on all sequences and does not enhance. Therefore, this favor s stewart matter heterotopia. IMPRESSION: A 6 x 5 mm subependymal nodule near the temporal horn of the left lateral ventricle. This matches gra y matter on all sequences and does not enhance. Therefore, this favors a stewart matter heterotopia. Electronically signed by: Neptali Garcia M.D. 10/24/2018 10:40 PM
[2018-10-25] MEDS: ACETAMINOPHEN 325 MG TAB PO PRN ×2 (08:14→12:36)
[2018-10-25] MEDS: levETIRAcetam 500 MG TAB PO SCH ×2 (08:15→20:12)
[2018-10-25] MEDS: VENLAFAXINE HCL 37.5 MG TAB PO SCH (08:15)
--- NOTE | 2018-10-25 12:18 | Progress Note ---
DATE: 10/25/2018 SUBJECTIVE: I am seeing Monae in followup of a history of seizure and Dilantin toxicity. She is feeling generally somewhat better today, still feeling somewhat off balance. She has not had any seizures. An MRI which I have reviewed and discussed with Dr. Feng shows a subependymal nodule near the temporal horn on the left lateral ventricle, measuring 6 x 5, favors stewart matter heterotopia. OBJECTIVE: GENERAL: On exam, the patient is awake and alert. Speech and language are normal. VITAL SIGNS: Blood pressure 117/77, 71, 18, 37. Current Dilantin level is 31.7. NEUROLOGIC: There is no nystagmus. Her gait is mildly unsteady. IMPRESSION: This patient has had seizures which have not been adequately controlled with Dilantin and has had recent toxicity. On 400 mg a day, she was subtherapeutic on Dilantin, and on 600 a day, she was supratherapeutic. PLAN: Dr. Feng has started Keppra 500 b.i.d. and I have discussed the side effects including mood related issues with the patient. After 2 weeks, I would increase to 1000 b.i.d. of Keppra. One week later, I would begin tapering the Dilantin by 20% per week until off and continuing Keppra. At present when the Dilantin level reaches 25, I would restart Dilantin either 250 mg twice a day or 200 in the morning, 300 at night with a level in a week. I think she needs to stay in the hospital an additional day because she is unsteady and the [facility] does not have the ability to help her ambulate with assistance while in her cell.
--- NOTE | 2018-10-25 18:18 | Hospitalist Progress Note ---
Date of Service October 25, 2018 Assessment & Plan (1) Altered mental status: This is a 43-year-old female with significant past medical history of seizure disorder, depression, anxiety, PTSD, ADD who presents from outside correctional facility secondary to altered mental status, blurred vision and headache times 3 hours. During ED evaluation phenytoin level toxic at 36. Other lab work and workup essentially unremarkable. CT head without acute abnormality -has been at mental baseline since being in hospital -normal B12 and TSH levels. negative urine toxicology screen -management of dilantin toxicity and seizure disorder as below (2) Dilantin toxicity: elevated dilantin levels on admission and is downtrending will send dilantin level on 10/26/18 neurology recommends dilantin to Keppra transition when the Dilantin level reaches 25, plans to restart Dilantin either 250 mg twice a day or as 200 in the morning / 300 at night with a level in a week. currently to continue Keppra 500 mg BID. Plan to increase to 1000 mg BID after 2 weeks. One week later, I would begin tapering the Dilantin by 20% per week until off and continuing Keppra Neurology service has informed hospitalist that some of these transitions can be done as outpatient at correctional facility but neurology service prefers closer monitoring inpatient at this time (3) Seizure disorder: Seizure disorder: neurology recommends dilantin to Keppra transition as described above MRI Brain 10/24/18 -A 6 x 5 mm subependymal nodule near the temporal horn of the left lateral ventricle. This matches stewart matter on all sequences and does not enhance. Therefore, this favors a stewart matter heterotopia -have discussed with neurology service and the best treatment of the stewart matter heterotopia is with medical management of anti-epileptic medications MRI cervical spine 10/24/18 -no significant acute findings (Tiny broad-based posterior disc bulge at C5-C6 without significant central canal narrowing. There is mild left-sided neural foraminal narrowing at this level. Straightening of the cervical spine (4) Depression: -continue effexor (5) PTSD (post-traumatic stress disorder): -continue prazosin (6) DVT prophylaxis: -SCDS Subjective Patient with normal affect and following commands. Is verbal. denies since being in the hospital of having confusion. denies acute changes in vision since being in hospital moving extremities well. is handcuffed because she is from correctional facility denies vomiting reports mild headache that gets better with acetaminophen Physical Exam 2 Vital Signs (Past 24 Hours): Last Vital Signs Temp 36.9 C 10/25/18 15:27 Pulse 72 10/25/18 15:27 Resp 18 10/25/18 15:27 BP 112/74 10/25/18 15:27 Pulse Ox 98 10/25/18 15:27 Constitutional: WD/WN, vitals as above Eyes: PERRL, conjunctivae normal, anicteric sclerae ENMT: external ear and nose normal, oropharynx normal Neck: trachea midline, no thyromegaly Respiratory: normal respiratory effort, lungs clear to auscultation Cardiovascular: RRR, no murmur, no edema Gastrointestinal (Abdomen): normal bowel sounds, soft, nontender, no hepatosplenomegaly Neurologic: PERRL, EOMI, accommodation nl, no face palsy, no dysarthria CN' s II-XI intact bilaterally Psychiatric: A+Ox3, euthymic affect _ (1) Altered mental status Altered mental status type: unspecified Coma depth: Coma timing: Qualified Code(s): R41.82 - Altered mental status, unspecified (2) Dilantin toxicity Encounter type: initial encounter Injury intent: accidental or unintentional Qualified Code(s): T42.0X1A - Poisoning by hydantoin derivatives, accidental ( unintentional), initial encounter (3) Depression Depression Type: unspecified Major depression recurrence: Active/Remission status: Major depression episode severity: Psychotic features: Trimester: Qualified Code(s): F32.9 - Major depressive disorder, single episode, unspecified
[2018-10-25] MEDS: PRAZOSIN HCL 1 MG CAP PO SCH (20:12)
[2018-10-26] MEDS: ACETAMINOPHEN 325 MG TAB PO PRN (08:46)
[2018-10-26] MEDS: levETIRAcetam 500 MG TAB PO SCH (08:46)
[2018-10-26] MEDS: VENLAFAXINE HCL 37.5 MG TAB PO SCH (08:47)
[2018-10-26] MEDS ORDERED: PHENYTOIN SODIUM ER 100 MG CAP PO SCH ×2 (09:00→21:00)
--- NOTE | 2018-10-26 11:55 | Hospitalist Progress Note ---
Date of Service October 26, 2018 Assessment & Plan (1) Altered mental status: This is a 43-year-old female with significant past medical history of seizure disorder, depression, anxiety, PTSD, ADD who presents from outside correctional facility secondary to altered mental status, blurred vision and headache times 3 hours. During ED evaluation phenytoin level toxic at 36. Other lab work and workup essentially unremarkable. CT head without acute abnormality -has been at mental baseline since being in hospital -normal B12 and TSH levels. negative urine toxicology screen -management of dilantin toxicity and seizure disorder as below (2) Dilantin toxicity: elevated dilantin levels on admission as 36 on 10/23/18 and downtrended with dilatin held until 10/26/18 when levels returned as 23.5 which is less than the 25 as per neurology service's threshold to resume dilantin at reduced home dose and with the Keppra transition Dilantin was held until 10/26/18 as of 10/26/18, Dilantin is being resumed as lower than home dose as 200 mg in the morning and 300 mg at night and patient will need repeat Dilantin level in 1 week patient was started on Keppra 500 mg BID as of night time of 10/25/18. Patient will continue Keppra 500 mg BID for 2 weeks. Then patient should have Keppra 1000 mg BID. After 1 week of Keppra 1000 mg BID the Dilantin dosing is to be tapered down 20% less per week until it is tapered off and then patient will remain on 1000 mg BID Keppra alone Because these dosing instructions are multiple steps; Hospitalist will discharge with prescription for Keppra 500 mg BID for 2 weeks and prescription for Dilantin 200mg in the morning and 300mg at night for 1 week The patient will need to be seen by primary care doctor at correctional facility to further prescribe the rest of the Keppar and Dilantin treatments as explained above Patient also has prescription for acetaminophen 650 mg every 4 hours for pain such as headache for 3 day supply correctional facility medical team should call Neurology clinic to schedule appointment in 6 weeks with neurology medical provider Molly Mcrae at [address] , [place] [address] (3) Seizure disorder: Seizure disorder: neurology recommends dilantin to Keppra transition as described above MRI Brain 2/8/19 -A 6 x 5 mm subependymal nodule near the temporal horn of the left lateral ventricle. This matches sauer matter on all sequences and does not enhance. Therefore, this favors a sauer matter heterotopia -have discussed with neurology service and the best treatment of the sauer matter heterotopia is with medical management of anti-epileptic medications MRI cervical spine 10/24/18 -no significant acute findings (Tiny broad-based posterior disc bulge at C5-C6 without significant central canal narrowing. There is mild left-sided neural foraminal narrowing at this level. Straightening of the cervical spine (4) Depression: -continue effexor (5) PTSD (post-traumatic stress disorder): -continue prazosin (6) DVT prophylaxis: -SCDS Discharge Diagnosis Seizure disorder, Sauer Matter Heterotopia, Dilantin Toxicity (unintentional overdose from home dose Dilantin regimen being used as prescribed) Discharge to correctional facility Subjective Patient with normal affect and following commands. Is verbal. denies since being in the hospital of having confusion. denies acute changes in vision since being in hospital moving extremities well. is handcuffed because she is from correctional facility denies vomiting no acute headache today Physical Exam 2 Vital Signs (Past 24 Hours): Last Vital Signs Temp 37 C 10/26/18 07:23 Pulse 73 10/26/18 07:23 Resp 18 10/26/18 07:23 BP 102/66 10/26/18 07:23 Pulse Ox 97 10/26/18 08:00 Constitutional: WD/WN, vitals as above Eyes: PERRL, conjunctivae normal, anicteric sclerae ENMT: external ear and nose normal, oropharynx normal Neck: trachea midline, no thyromegaly Respiratory: normal respiratory effort, lungs clear to auscultation Cardiovascular: RRR, no murmur, no edema Gastrointestinal (Abdomen): normal bowel sounds, soft, nontender, no hepatosplenomegaly Neurologic: PERRL, EOMI, accommodation nl, no face palsy, no dysarthria CN' s II-XI intact bilaterally Psychiatric: A+Ox3, euthymic affect _ (1) Dilantin toxicity Encounter type: initial encounter Injury intent: accidental or unintentional Qualified Code(s): T42.0X1A - Poisoning by hydantoin derivatives, accidental ( unintentional), initial encounter (2) Depression Active/Remission status: Depression Type: unspecified Major depression episode severity: Major depression recurrence: Psychotic features: Trimester: Qualified Code(s): F32.9 - Major depressive disorder, single episode, unspecified (3) Altered mental status Altered mental status type: unspecified Coma depth: Coma timing: Qualified Code(s): R41.82 - Altered mental status, unspecified
--- NOTE | 2018-10-26 12:09 | Discharge Summary ---
Date of Service October 26, 2018 Admission HPI Per Admitting Provider This is a 43-year-old female with significant past medical history of seizure disorder, depression, anxiety, PTSD, ADD who presents from outside correctional facility secondary to altered mental status, blurred vision and headache times 3 hours. Guards are present at bedside. Symptoms started approximately at 10: 30 AM when patient was unaware of surroundings, where she was, "acting out of it." Patient also elicits headache that starts at the base of head and radiates to right temporal region, constant, waxes and wanes in severity, currently 3/10. She also elicits to diplopia and blurred vision which are not exactly new. She states this has been ongoing for about 1 week, "for example when I read a book I have to hold out very far or it is blurry." Patient's last known seizure was approximately 1 week ago. She states she gets convulsive seizures as well as "staring episodes." Approximately 1 week ago she developed similar symptoms with headache that radiated to right temporal region, "kaleidoscope-like vision," that then went into convulsions and loss of bowel and bladder control. Down for unknown duration but states that "I came to fairly quickly." This past year she has had approximately 6-7 known seizures. She has been compliant with her Dilantin. Denies fever, chills, sweats, dizziness, chest pain, shortness of breath, hemoptysis, palpitations, nausea, vomiting, diarrhea, abdominal pain. She does state increased urinary frequency after recently starting prazosin, but this helps with her night terrors. Also associates lightheadedness upon standing that resolves after a few seconds. No recent illness, but complains of sinus congestion. She has normal appetite. States last drug use was August, marijuana. History of migraines but this feels nothing similar. Admission Exam Per Admitting Provider Gen: WD/WN, F, NAD, sitting up in bed, pleasant, conversing easily Head: Normocephalic, Atraumatic Eyes: Sclera normal, no conjunctival injection, PERRLA, EOMI, no nystagmus, fundus exam normal ENT: Gross hearing intact, normal pharynx, mucous membranes moist Neck: supple, no adenopathy, No JVD, no bruit, Resp: Clear to auscultation b/l, no wheeze, rales, rhonchi. 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 Extremities: No edema bilaterally Skin: warm, moist, no rash, negative turgor, cap refill < 2sec Neuro: Alert and oriented x 3, speech normal, good mood/affect, cran nerve 2-12 intact grossly : deferred Principal Diagnosis Seizure disorder, Sauer Matter Heterotopia, Dilantin Toxicity (unintentional overdose from home dose Dilantin regimen being used as prescribed) Discharge Exam Constitutional WD/WN, vitals as above Eyes PERRL, conjunctivae normal, anicteric sclerae ENMT external ear and nose normal, oropharynx normal Neck trachea midline, no thyromegaly Respiratory normal respiratory effort, lungs clear to auscultation Cardiovascular RRR, no murmur, no edema Gastrointestinal (Abdomen) normal bowel sounds, soft, nontender, no hepatosplenomegaly Neurologic PERRL, EOMI, accommodation nl, no face palsy, no dysarthria CN's II-XI intact bilaterally Psychiatric A+Ox3, euthymic affect Discharge Data Allergies Allergy/AdvReac Type Severity Reaction Status Date / Time No Known Allergies Allergy Unverified 10/23/18 12:20 Consultations 10/23/18 19:10 Consult Case Management - Discharge Planning Routine Consult Neurology Routine Ordered Studies 10/23/18 12:43 CT head/brain wo con Stat 10/24/18 17:51 MR brain seizure wo/w con Routine MR cervical spine wo con Routine Hospital Course (1) Altered mental status: This is a 43-year-old female with significant past medical history of seizure disorder, depression, anxiety, PTSD, ADD who presents from outside correctional facility secondary to altered mental status, blurred vision and headache times 3 hours. During ED evaluation phenytoin level toxic at 36. Other lab work and workup essentially unremarkable. CT head without acute abnormality -has been at mental baseline since being in hospital -normal B12 and TSH levels. negative urine toxicology screen -management of dilantin toxicity and seizure disorder as below (2) Dilantin toxicity: elevated dilantin levels on admission as 36 on 10/23/18 and downtrended with dilatin held until 10/26/18 when levels returned as 23.5 which is less than the 25 as per neurology service's threshold to resume dilantin at reduced home dose and with the Keppra transition Dilantin was held until 10/26/18 as of 10/26/18, Dilantin is being resumed as lower than home dose as 200 mg in the morning and 300 mg at night and patient will need repeat Dilantin level in 1 week patient was started on Keppra 500 mg BID as of night time of 10/25/18. Patient will continue Keppra 500 mg BID for 2 weeks. Then patient should have Keppra 1000 mg BID. After 1 week of Keppra 1000 mg BID the Dilantin dosing is to be tapered down 20% less per week until it is tapered off and then patient will remain on 1000 mg BID Keppra alone Because these dosing instructions are multiple steps; Hospitalist will discharge with prescription for Keppra 500 mg BID for 2 weeks and prescription for Dilantin 200mg in the morning and 300mg at night for 1 week The patient will need to be seen by primary care doctor at correctional facility to further prescribe the rest of the Keppar and Dilantin treatments as explained above Patient also has prescription for acetaminophen 650 mg every 4 hours for pain such as headache for 3 day supply correctional facility medical team should call Neurology clinic to schedule appointment in 6 weeks with neurology medical provider Molly Mcrae at [address], [place] [address] (3) Seizure disorder: Seizure disorder: neurology recommends dilantin to Keppra transition as described above MRI Brain 10/24/18 -A 6 x 5 mm subependymal nodule near the temporal horn of the left lateral ventricle. This matches sauer matter on all sequences and does not enhance. Therefore, this favors a sauer matter heterotopia -have discussed with neurology service and the best treatment of the sauer matter heterotopia is with medical management of anti-epileptic medications MRI cervical spine 10/24/18 -no significant acute findings (Tiny broad-based posterior disc bulge at C5-C6 without significant central canal narrowing. There is mild left-sided neural foraminal narrowing at this level. Straightening of the cervical spine (4) Depression: -continue effexor (5) PTSD (post-traumatic stress disorder): -continue prazosin (6) DVT prophylaxis: -SCDS Discharge Diagnosis Seizure disorder, Sauer Matter Heterotopia, Dilantin Toxicity (unintentional overdose from home dose Dilantin regimen being used as prescribed) Discharge to correctional facility Total Time Total Time Spent Total Time Spent (In Minutes): 40 minutes Total Time Includes: Examination of the Patient, Discharge Planning and Medication Reconciliation Discharge Plan Discharge Items Patient Disposition: [facility] Facility Reason For Visit: PHENYTOIN TOXICITY Condition: Good Discharge Goals: Improve disease control Activity: Resume your previous activity Non-emergency contact: Primary Care Provider and Neurologist Call non-emergency contact if: you have any medication questions Diet: Regular Addtl Provider Instructions: Patient to be discharged return to correctional facility Patient was found to have elevated Dilantin levels Dilantin was held until 10/26/18 as of 10/26/18, Dilantin is being resumed as lower than home dose as 200 mg in the morning and 300 mg at night and patient will need repeat Dilantin level in 1 week patient was started on Keppra 500 mg BID as of night time of 10/25/18. Patient will continue Keppra 500 mg BID for 2 weeks. Then patient should have Keppra 1000 mg BID. After 1 week of Keppra 1000 mg BID the Dilantin dosing is to be tapered down 20% less per week until it is tapered off and then patient will remain on 1000 mg BID Keppra alone Because these dosing instructions are multiple steps; Hospitalist will discharge with prescription for Keppra 500 mg BID for 2 weeks and prescription for Dilantin 200mg in the morning and 300mg at night for 1 week The patient will need to be seen by primary care doctor at correction[facility] facility to further prescribe the rest of the Keppar and Dilantin treatments as explained above Patient also has prescription for acetaminophen 650 mg every 4 hours for pain such as headache for 3 day supply correctional facility medical team should call Neurology clinic to schedule appointment in 6 weeks with neurology medical provider Molly Mcrae at [address] , [place] [address] Prescriptions: New acetaminophen [Mapap (acetaminophen)] 325 mg Tablet 650 mg PO Q4H PRN (Reason: headache) 3 Days Qty: 24 RF: 0 levetiracetam [Keppra] 500 mg Tablet 500 mg PO BID 14 Days Qty: 28 RF: 0 phenytoin sodium extended [Dilantin Extended] 100 mg Capsule 200 mg PO DAILY 7 Days Qty: 14 RF: 0 phenytoin sodium extended [Dilantin Extended] 100 mg Capsule 300 mg PO HS 7 Days Qty: 21 RF: 0 Continue prazosin 1 mg Capsule 1 mg PO HS RF: 0 venlafaxine 37.5 mg Tablet 37.5 mg PO DAILY RF: 0 Discontinued phenytoin sodium extended 100 mg Capsule 300 mg PO BID RF: 0 Stand-Alone Forms: [facility] Admission Data Admit Date/Time: 10/24/18 18:23 Attending Provider: Lobo Feng Admit Provider: Ulises Shrestha Primary Care Provider: PCP,NO Other Providers: Duran Hutchison Service: Telemetry
--- NOTE | 2018-10-26 12:26 | Progress Note ---
DATE: 10/26/2018 SUBJECTIVE: I am seeing Monae in followup of Dilantin toxicity with incompletely controlled seizures on Dilantin. She is feeling much improved today. Dilantin level was 23. She has not had any seizures and her balance is improved. OBJECTIVE: GENERAL: On exam, awake, alert. NEUROLOGIC: No nystagmus. Gait, tandem unremarkable for age. VITAL SIGNS: 102/66, 73, 18, 37, O2 sat 97%. IMPRESSION: Seizure disorder, poorly controlled, with recent Dilantin toxicity, on 600 mg a day of Dilantin with subtherapeutic levels on 400 mg a day. One may restart either Dilantin 250 mg twice a day or 200 in the morning, 300 at night with a level in about 10 days. Keppra has been started at 500 b.i.d. After 2 weeks, she should go to a 1000 mg b.i.d., and then a week later, I would check a level and if therapeutic, begin tapering the Dilantin by 20% per week until off. The patient should see my office in followup. [facility]
== END 2018-10-26 14:17 | DRG 948 ==
LOC: 2W 11:45 → ED 11:45 → 2W 18:35